=== PATIENT | male | born 1955 | race African-American/Black ===

== ENCOUNTER 2021-06-16 16:15 | Observation (INO) | payer MEDICARE, SELFPAY ==
--- NOTE | ~2021-06-16 | MR_ITS ---
EXAMINATION: MR brain/brain stem wo/w con EXAM DATE: 06/17/2021 11:09 INDICATION: Weakness left side. Acute infarction. TECHNIQUE: Magnetic resonance imaging (MRI) of the brain/brain stem obtained without contrast. Sagit jose T1, axial diffusion, gradient echo (T2*), T1, T2, FLAIR sequences obtained. Patient was then inj ected with 20 cc intravenous Multihance contrast. Axial and coronal postcontrast T1 weighted sequence s obtained. Correlation is made to head CT from yesterday. FINDINGS: Right thalamic hypodensity identified on yesterday's CT has restricted diffusion and increa sed T2 signal, acute to early subacute infarction (probably about 24 hours old). There is mild microa ngiopathy. Mildly dilated perivascular spaces at the vertex. No obstructive hydrocephalus, brain mass , acute intracranial hemorrhage or extra-axial collections. Flow voids are seen in the cerebral arter ies on the T2 weighted sequences consistent with their expected patency. Orbits and soft tissues unre markable. There are no areas of abnormal enhancement on the post contrast images. IMPRESSION: Right thalamic acute to early subacute lacunar infarction. Reviewed, dictated and finalized at location B.
--- NOTE | ~2021-06-16 | XR_ITS ---
EXAMINATION: XR chest 1V portable 06/16/2021 16:50 INDICATION: Dyspnea. Left leg weakness. PROCEDURE: AP portable chest COMPARISON: No prior studies for comparison. FINDINGS: The lungs are clear. The cardiomediastinal silhouette is within normal limits. There are no pleural effusions. There is no pneumothorax suspected. IMPRESSION: 1: NO ACUTE CARDIOPULMONARY DISEASE. Reviewed, dictated and finalized at location A.
--- NOTE | ~2021-06-16 | CT_ITS ---
EXAMINATION: CT brain wo con DATE: 06/16/2021 17:10 INDICATION: Weakness and unsteady gait TECHNIQUE: Computed tomography (CT) of the head was performed without intravenous contrast. Sagittal and coronal reconstructions were performed. The mA was adjusted according to patient size. Iterative reconstruction technique was employed. The dose-length product was 605.33 mGy-cm. COMPARISON: None FINDINGS: Old right occipital craniotomy. Right thalamic old lacunar infarct. No acute intracranial hemorrhage, acute infarction or abnormal extra axial fluid collection. There is mild scattered white matter hypo attenuation consistent with chronic small vessel ischemic disease. Ventricles are normal and symmetr ic. No mass/mass effect. The orbits, paranasal sinuses and mastoid air cells are normal. IMPRESSION: 1. No acute intracranial process. 2. Right thalamic old lacunar infarct with additional mild scattered nonspecific white matter hypoatt enuation consistent with chronic small vessel ischemic disease. Reviewed, dictated and finalized at location A. IMPRESSION: 1. No acute intracranial process. 2. Right thalamic old lacunar infarct with additional mild scattered nonspecifi c white matter hypoattenuation consistent with chronic small vessel ischemic di sease.
--- NOTE | ~2021-06-16 | US_ITS ---
EXAMINATION: US carotid duplex BI DATE: 06/17/2021 11:35 INDICATION: Left-sided weakness TECHNIQUE: Grayscale, color Doppler, and pulsed Doppler images of the cervical carotid arteries were obtained. The degree of vessel stenosis is placed in one of the following categories: normal, <50%, 5 0-69%, >=70% but less than near-occlusion, near-occlusion, or total occlusion. Note that percent sten osis relative to normal distal artery lumen diameter is indirectly measured from velocity measurement s as described by Gary, et al. Radiology 2003; 229:340-346. Notes: Normal: Peak systolic velocity <125 centimeters/sec and no plaque <50%. Peak systolic velocity <125 ( EDV <40; ICA/CCA PSV ratio <2.0; used these factors only a tandem lesions or low cardiac output or co ntralateral disease) 50-69 %: PSV 125-230 (EDV 40-100; ratio 2-4) >= 70% but less than near occlusion: PSV greater than 230 (EDV > 100; ratio> 4.0) Near Occlusion: PSV that is variable; markedly narrowed lumen Occlusion: Absent flow on color/spectral Doppler and no lumen on palm scale. COMPARISON: None. FINDINGS: RIGHT: The right common carotid artery (CCA) peak systolic velocity (PSV) is 52 cm/s. The right internal car otid artery (ICA) PSV is 60 cm/s. The right ICA end-diastolic velocity (EDV) is 11 cm/s. The right IC A/CCA PSV ratio is 1.2. The external carotid artery (ECA) PSV is 72 cm/s. There is antegrade flow in the right vertebral artery. LEFT: The left CCA PSV is 78 cm/s. The left ICA PSV is 59 cm/s. The left ICA EDV is 19 cm/s. The left ICA/C CA PSV ratio is 0.8. The ECA PSV is 85 cm/s. There is antegrade flow in the left vertebral artery. IMPRESSION: 1. Less than 50% stenosis in the right internal carotid artery by sonographic criteria. 2. Less than 50% stenosis in the left internal carotid artery by sonographic criteria. Reviewed, dictated and finalized at location A. IMPRESSION: 1. Less than 50% stenosis in the right internal carotid artery by sonographic c ayden. 2. Less than 50% stenosis in the left internal carotid artery by sonographic cesar chris.
[2021-06-16 16:18] VITALS: BP 146/94; PULSE 124; RESP 18; TEMP 36.8; O2SAT 99
--- NOTE | 2021-06-16 16:23 | ECG_ITS ---
Measurements Intervals [place] Rate: 118 P: 53 TN: 204 QRS: 210 QRSD: 96 T: 59 QT: 331 QTc: 464 Interpretive Statements SINUS TACHYCARDIA RIGHT AXIS DEVIATION BORDERLINE AV CONDUCTION DELAY POSSIBLE LEFT ATRIAL ENLARGEMENT POOR R WAVE PROGRESSION, ANTERIOR LEADS CONSIDER INFERIOR INFARCT, AGE INDETERMINATE ABNORMAL ECG Electronically Signed On 06-16-2021 16:37:25 CDT by Micah De La Cruz D.O.
[2021-06-16 16:38] LABS: Glucose Point of Care 245 mg/dl (65-105)
[2021-06-16 16:46] LABS: Basophils Percent Auto 0.4 % (0.2-1.2); Eosinophils Percent Auto 0.3 % (0-4.4); Hematocrit 48.9 % (42.0-52.0); Hemoglobin 16.4 g/dL (14.0-18.0); Immature Granulocyte Absolute 0.01 K/mm3 (0.00-0.031); Immature Granulocyte Percent A 0.1 % (0-0.5); Lymphocytes Absolute Auto 2.79 K/mm3 (0.9-3.2); Lymphocytes Percent Auto 35.9 % (18.3-44.2); Mean Corpuscular HGB Conc 33.5 g/dl (32-36); Mean Corpuscular Hemoglobin 31.1 pg (26-34); Mean Corpuscular Volume 92.8 fl (80-100); Monocytes Absolute Auto 0.7 K/mm3 (0.1-0.6); Monocytes Percent Auto 8.9 % (2.6-8.5); Neutrophils Absolute Auto 4.2 K/mm3 (1.3-6.7); Neutrophils Percent Auto 54.4 % (45.5-73.1); Platelet Count Result 283 k/mm3 (150-375); Red Blood Count 5.27 M/mm3 (4.6-6.20); White Blood Count 7.8 K/mm3 (4.5-10.0)
[2021-06-16 16:53] LABS: INR 0.9; Prothrombin Time 12.3 Seconds (11.1-14.7)
[2021-06-16 16:54] LABS: Partial Thromboplastin Time 25.8 SECONDS (22.3-36.8)
[2021-06-16 16:56] LABS: Anion Gap 18 mmol/L (8-16); Blood Urea Nitrogen 22 mg/dL (9-20); Calcium 9.8 mg/dL (8.4-10.2); Carbon Dioxide 17 mmol/L (22-30); Chloride 104 mmol/L (98-107); Estimated CRCL calculation 102 ml/min; Estimated Glomerular Filt Rate > 60; Glucose 242 mg/dL (65-110); Potassium 3.7 mmol/L (3.4-5.0); Sodium 139 mmol/L (137-145)
[2021-06-16 17:08] LABS: Troponin I < 0.012 ng/mL (0.000-0.034)
--- NOTE | 2021-06-16 17:13 | ED.NEUROSD ---
HPI - Neuro Symptoms/Deficit General Chief Complaint: Neuro Symptoms/Deficit Stated Complaint: LEFT HAND NUMBNESS Time Seen by Provider: 06/16/21 16:40 Source: patient Mode of arrival: ambulatory Limitations: no limitations History of Present Illness HPI Narrative: Patient is a 66-year-old male complaining of left hand numbness accompanied by left lower extremity weakness that started yesterday. Patient denies any headache, dizziness, speech or visual disturbance, unsteady gait, chest pain, shortness of breath, nausea, vomiting, fever or chills. Related Data Allergies Allergy/AdvReac Type Severity Reaction Status Date / Time No Known Allergies Allergy Unverified 03/28/17 06:55 Review of Systems Review of Systems: All systems reviewed & are unremarkable except as noted in HPI and below Constitutional: Constitutional: Denies body ache(s), Denies chills, Denies excessive sweating, Denies fatigue, Denies fever(s), Denies headache(s), Denies lethargy, Denies malaise, Denies weakness and Denies weight loss Eyes: Eyes: Denies blurry vision, Denies change in vision and Denies loss of vision ENT: Denies dizziness, Denies ear discharge, Denies headache(s), Denies lip swelling, Denies epistaxis, Denies nasal congestion, Denies neck pain, Denies throat swelling and Denies tongue swelling Cardiovascular: Cardiovascular: Denies chest pain, Denies chest pain at rest, Denies chest pain with activity, Denies diaphoresis, Denies rapid heart rate, Denies edema, Denies irregular heart rhythm, Denies lightheadedness, Denies palpitations, Denies dyspnea and Denies dyspnea on exertion Respiratory: Respiratory: Denies chest congestion, Denies cough, Denies hemoptysis, Denies dyspnea and Denies dyspnea on exertion Gastrointestinal: Gastrointestinal: Denies abdominal pain, Denies melena, Denies hematochezia, Denies diarrhea, Denies nausea, Denies vomiting and Denies hematemesis Musculoskeletal: Musculoskeletal: Denies abnormal gait, Denies deformity, Denies joint swelling, Denies limited range of motion and Denies neck pain Neurologic: Denies Abnormal speech present, Denies abnormal gait, Denies confusion, Denies dizziness, Denies headache(s), Denies loss of vision, Denies Other visual disturbances, Denies Sensory deficit (Neuro) and Denies weakness Psychiatric: Psychiatric: Denies confusion, Denies depression, Denies auditory hallucinations, Denies homicidal ideation and Denies suicidal ideation Endocrine: Endocrine: Denies cold intolerance, Denies excessive sweating, Denies fatigue, Denies heat intolerance and Denies palpitations Hematologic/Lymphatic: Hematologic/Lymphatic: Denies easy bleeding and Denies easy bruising Allergic/Immunologic: Allergic/Immunologic: Denies lip swelling, Denies throat swelling and Denies tongue swelling PMFSH Comments Past medical history: Diabetes Family history: Diabetes Social history: Non-smoker no EtOH or drug use Course Course Emergency Course: Patient reexamined at 1814. Patient still having left hand numbness. Left lower extremity weakness is resolved. Vital Signs Vital signs: Vital Signs Temperature 36.8 C 06/16/21 16:18 Pulse Rate 124 H 06/16/21 16:18 Respiratory Rate 18 06/16/21 16:18 Blood Pressure 146/94 H 06/16/21 16:18 Pulse Oximetry 99 06/16/21 16:18 Temperature 36.8 C 06/16/21 16:18 Pulse Rate 112 H 06/16/21 17:37 Respiratory Rate 18 06/16/21 17:37 Blood Pressure 148/91 H 06/16/21 17:37 Pulse Oximetry 98 06/16/21 17:37 MDM - Neuro Symptoms/Deficit MDM Narrative Medical decision making narrative: I reviewed his labs EKG and CT scan of his head. CBC within normal limits chemistry shows a elevated blood glucose of 242 otherwise within normal limits. CT head did not show any acute intracranial process, old infarcts seen. Patient is not a candidate for TPA since onset of symptoms is greater than 4.5 hours. Patient is also not a candidate for thrombectomy since onset
[2021-06-16 17:37] VITALS: BP 148/91; PULSE 112; RESP 18; O2SAT 98
[2021-06-16] MEDS: ASPIRIN 81 MG CHEWABLE TABLET 324 MG PO (18:36)
[2021-06-16 19:28] VITALS: BP 157/90; PULSE 108; RESP 19; O2SAT 97
--- NOTE | 2021-06-16 19:28 | PC.NURSE ---
Assumed care of pt at this time. Pt alert and upright on stretcher, no request at this time. Pt updated on POC.
[2021-06-16 20:53] VITALS: BP 163/96; PULSE 103; RESP 18; O2SAT 98
[2021-06-16 21:05] VITALS: BMI 38.7
[2021-06-16 21:10] VITALS: PULSE 96
[2021-06-16 21:15] VITALS: BP 150/93; PULSE 107; RESP 20; TEMP 36.9; O2SAT 96
[2021-06-16] MEDS: LACTATED RINGERS 1,000 ML 125 ML IV CONT (21:18)
--- NOTE | 2021-06-16 22:22 | PC.NURSE ---
This patient, Osmel Hinton, was admitted to [facility]. Patient/family oriented to hospital policies and general routines including ID bracelet, bed and alarms, visiting hours, pain management, procedures, bathroom and other care routines, personal items, smoking policy, room service/diet, and visiting hours. Information on how to activate the Rapid Response Team has been discussed. Patient/Family are encouraged to report perceived risks to care and to ask questions if they do not understand what they are told or what they should do.
[2021-06-16 22:35] LABS: Glucose Point of Care 219 mg/dl (65-105)
[2021-06-17] VITALS (11 sets, daily range): BP systolic 142–165; BP diastolic 77–104; PULSE 85–104; RESP 16–20; TEMP 36–36.8; O2SAT 96–98; BMI 38.7
--- NOTE | 2021-06-17 | ECHO_ITS ---
Patient Info Name: Osmel Hinton Age: 66 years : 1955 Gender: Male Ht: 67 in Wt: 246 lbs BSA: 2.35 m2 HR: 92 bpm BP: 155 / 95 mmHg Technical Quality: Good Exam Date: 06/17/2021 7:55 AM Exam Location: [facility] Patient Status: Outpatient Admit Date: 06/16/2021 Staff Ordering Physician: Gabriela Sosa NP Group Insurance Specialist: Savana Davis RDCS Attending Provider: Minerva Hair MD Referring Physician: Ian ALLEN; Exam Type: CA echo doppler w bubble study Study Info Indications - LEFT SIDED WWEAKNESS Complete two-dimensional, color flow and Doppler transthoracic echocardiogram is performed with agitated saline. Contrast/Agitated Saline Contrast/Ag. Saline: Agitated Saline Amount: 20.00 ml Administered By: Marita Dougherty RN Existing IV Access: Yes IV Access Condition: patent with no signs of infiltration Summary 1. Left ventricular chamber dimension is normal. 2. Left ventricular systolic function is normal, estimated at 60-65%. 3. There is moderate concentric increased left ventricular wall thickness. 4. The left ventricular diastolic function is grade I diastolic dysfunction. 5. E/e' 8 is minimally elevated. 6. Global longitudinal strain is abnormal at -13.3%. 7. Left atrial chamber dimension is mildly enlarged. 8. There is mild aortic valve sclerosis. 9. There is trace pulmonic regurgitation. 10. Atheroma noted in anterior aortic root. Left Ventricle E/e' 8 is minimally elevated. Global longitudinal strain is abnormal at -13.3%. Left ventricular chamber dimension is normal. Left ventricular systolic function is normal, estimated at 60-65%. There is moderate concentric increased left ventricular wall thickness. The left ventricular diastolic function is grade I diastolic dysfunction. Right Ventricle Right ventricular chamber dimension is normal. Right ventricular systolic function is normal. Left Atria Left atrial chamber dimension is mildly enlarged. Right Atria Right atrial chamber dimension is normal. Atrial Septum Agitated saline injection with and without valsalva maneuver opacified right cardiac chambers without shunt to left cardiac chambers. Intact interatrial septum visualized by 2D and agitated saline imaging. Aortic Valve The aortic valve is trileaflet. There is mild aortic valve sclerosis. There is no aortic valve stenosis. There is no aortic valve regurgitation. Pulmonic Valve There is trace pulmonic regurgitation. Mitral Valve There is no mitral valve stenosis. There is no mitral valve regurgitation. Tricuspid Valve There is no tricuspid valve regurgitation. Pericardium/Pleural There is no pericardial effusion. Inferior Vena Cava Normal inferior vena cava with >50% collapse upon inspiration consistent with normal right atrial pressure, 5 mmHg. Aorta Atheroma noted in anterior aortic root. The aortic root size at the sinus of Valsalva is normal. Tricuspid Valve Name Value Normal Estimated PAP/RSVP RA Pressure 5 mmHg <=5 Report Signatures
--- NOTE | 2021-06-17 | PM.IMHP ---
H&P: HPI History of Present Illness Date/Time: 06/16/21 [id number] this is a 66-year-old male patient who had been on medication for blood pressure and diabetes in the past. The patient denies having any previous strokes. The patient stated that Sunday morning he woke up and was having some numbness and tingling to his left arm. The patient also stated that his left leg felt weak as well. The patient stated if he leaned too far to left he would fall over. The patient stated that he has been controlling his diabetes with diet. The patient was found to have an anion gap 18. His blood sugar was 245 and then 219. The patient stated that his blood sugars are was in the 200s. Head CT was read as no acute intracranial process. Right they will make old lacunar infarct with additional mild scattered nonspecific white matter hypoattenuation consistent with chronic small vessel ischemic disease. Chest x-ray was read as no acute cardiopulmonary disease. The patient was started on an aspirin and IV fluids. The patient is being admitted for observation on the date of service of 06/16/2021. Chief Complaint: Numbness and tingling in the left arm and leg Review of Systems Review of Systems: All systems reviewed & are unremarkable except as noted in HPI and below Constitutional: Constitutional: Reports as per HPI and Reports no additional constitutional complaints Eyes: Eyes: Reports as per HPI and Reports no additional eye complaints ENT: Reports system reviewed and no additional complaints, except as documented and Reports Normal hearing present Cardiovascular: Cardiovascular: Reports no additional cardiovascular complaints Respiratory: Respiratory: Reports no additional respiratory complaints and Reports no additional respiratory complaints Gastrointestinal: Gastrointestinal: Reports as per HPI and Reports no additional gastrointestinal complaints Musculoskeletal: Musculoskeletal: Reports no additional musculoskeletal complaints Integumentary/Breasts: Skin/Breast: Reports system reviewed and no additional complaints, except as docu and Reports as per HPI Neurologic: Reports system reviewed and no additional complaints, except as documented, Reports as per HPI and Reports Normal hearing present Psychiatric: Psychiatric: Reports no additional psychiatric complaints and Reports as per HPI Endocrine: Endocrine: Reports no additional endocrine complaints Hematologic/Lymphatic: Hematologic/Lymphatic: Reports no additional hematologic/lymphatic complaints Allergic/Immunologic: Allergic/Immunologic: Reports no additional allergic/immunologic complaints [facility] Past Medical History Medical History (Updated 06/17/21 @ 00:11 by Gabriela Sosa NP) DM2 (diabetes mellitus, type 2) Patient stated that he is diet controlled and no longer takes any medication Hyperlipidemia Hypertension Nerve compression Decompression of cerebral nerve right-sided posterior Family History Family History (Updated 06/17/21 @ 00:12 by Gabriela Sosa NP) Father Cancer Mother Alzheimer disease Social History Social History (Updated 06/17/21 @ 00:13 by Gabriela Sosa NP) Social History: The patient lives with his and she is the durable power attorney law clerk for healthcare. The patient desires to be a full code. He has 3 children. 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 He is a lifelong nonsmoker does not drink alcohol or do any illicit drugs. Smoking status: Never smoker Alcohol intake: never Substance use: never Spiritual care concerns: No Meds Home Medications and Allergies Home Medications Medication Instructions Recorded Confirmed Type No Home Medications 06/16/21 06/16/21 History Allergies Allergy/AdvReac Type Severity Reaction Status Date / Time No Known Allergies Allergy Unverified 03/28/17 06:55 Vital Signs Vital Signs - 24 hr 06/16/21 16:18 06/16/21 17:37 06/16/21 19:28 Temp
[2021-06-17 05:53] LABS: Alanine Aminotransferase 14 U/L (4-50); Alkaline Phosphatase 93 U/L (38-126); Anion Gap 11 mmol/L (8-16); Aspartate Amino Transferase 19 U/L (17-59); Bilirubin,Total 0.7 mg/dL (0.2-1.3); Blood Urea Nitrogen 22 mg/dL (9-20); Calcium 9.3 mg/dL (8.4-10.2); Carbon Dioxide 21 mmol/L (22-30); Chloride 103 mmol/L (98-107); Cholesterol 261 mg/dL (0-200); Estimated CRCL calculation 107 ml/min; Estimated Glomerular Filt Rate > 60; Glucose 254 mg/dL (65-110); HDL Direct 33 mg/dL; Lactic Acid Reflex 0.9 mmol/L (0.7-2.1); Magnesium 1.8 mg/dL (1.6-2.3); Potassium 3.2 mmol/L (3.4-5.0); Sodium 135 mmol/L (137-145); Triglycerides 189 mg/dL (<150)
[2021-06-17 05:55] LABS: Hemoglobin A1C 11.5 % (<5.7)
[2021-06-17 06:06] LABS: LDL Cholesterol Direct 162 mg/dL
[2021-06-17 07:50] LABS: Glucose Point of Care 206 mg/dl (65-105)
[2021-06-17] MEDS: POTASSIUM CHLORIDE 20 MEQ TABLET 40 MEQ PO (09:01)
[2021-06-17] MEDS: ASPIRIN 325 MG ENTERIC TABLET PO (09:02)
[2021-06-17 09:21] LABS: Glucose Point of Care 224 mg/dl (65-105)
[2021-06-17] MEDS: INSULIN ASPART (*BKC) 100 UNITS/ML SUB-Q (09:21)
--- NOTE | 2021-06-17 09:48 | WPDNEURCNPN ---
Assessment and Plan Additional Plan In addition to the possibility of small vessel disease with subcortical strokes as has been documented by the initial CT scan the possibility of the compressive neuropathy is also likely the patient stays in 1 position particularly during sleep also with history of uncontrolled diabetes mellitus once the stroke evaluation is completed benefit from the outpatient EMG nerve conduction study at this stage will continue on the medication as such echocardiogram has been done after that decision will be made whether he needs different therapeutic regimen or not. Consult date: 06/17/21 Time Seen: 09:30 HPI: Osmel Hinton is a 66 year old male has been admitted to the hospital through the emergency room with information that he woke up in the morning on Sunday with the complaints of numbness and tingling sensation of his left upper extremity at the same time his left lower extremity felt weaker as well when he leaned over to the left he had a tendency to fall over patient is a known diabetic been controlling his blood sugar with diet though his blood sugar in the emergency room was 245 and then repeat [address] scan was abnormal but with no acute intracranial process and also with no bleed chest x-ray was negative he was started on intravenous fluids and aspirin and was admitted to the hospital for further evaluation. His past history as mentioned above is consistent with 1. Type 2 diabetes mellitus 2. Hypertension 3. Hyperlipidemia 3. Surgery on the right upper extremity . He is a never smoker never drink never substance user but has no medications as well. is studies up until now included CBC which is normal and BMP which revealed a blood sugar of 254, BUN of 22 and creatinine of 0.70 with hemoglobin A1c of 11.5, triglycerides 189 with cholesterol of 261, CT of the head documented right thalamic old lacunar infarct with scattered nonspecific white matter hypoattenuation consistent with the chronic small-vessel ischemic disease Review of Systems Review of Systems: All systems reviewed & are unremarkable except as noted in HPI and below PMFSH Past Medical History Medical History DM2 (diabetes mellitus, type 2) Patient stated that he is diet controlled and no longer takes any medication Hyperlipidemia Hypertension Nerve compression Decompression of cerebral nerve right-sided posterior Family History Family History Father Cancer Mother Alzheimer disease Social History Social History Social History: The patient lives with his and she is the durable power occupational safety and health manager for healthcare. The patient desires to be a full code. He has 3 children. 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 He is a lifelong nonsmoker does not drink alcohol or do any illicit drugs. Smoking status: Never smoker Alcohol intake: never Substance use: never Spiritual care concerns: No Meds Home Medications and Allergies Home Medications Medication Instructions Recorded Confirmed Type No Home Medications 06/16/21 06/16/21 History Allergies Allergy/AdvReac Type Severity Reaction Status Date / Time No Known Allergies Allergy Unverified 03/28/17 06:55 Vital Signs Vital Signs - 24 hr 06/16/21 16:18 06/16/21 17:37 06/16/21 19:28 Temperature 36.8 C Pulse Rate 124 H 112 H 108 H Respiratory Rate 18 18 19 Blood Pressure 146/94 H 148/91 H 157/90 H Pulse Oximetry 99 98 97 06/16/21 20:53 06/16/21 21:10 06/16/21 21:15 Temperature 36.9 C Pulse Rate 103 H 96 107 H Respiratory Rate 18 20 Blood Pressure 163/96 H 150/93 H Pulse Oximetry 98 96 06/17/21 00:00 06/17/21 04:00 06/17/21 05:59 Temperature 36.6 C Pulse Rate 97 85 97 Respiratory Rate 16 Blood Pressure 155/95 H Pulse Oximetry 98 06/17/21
--- NOTE | 2021-06-17 10:27 | PC.NURSE ---
Pt to MRI per wheelchair.
[2021-06-17 11:54] LABS: Glucose Point of Care 182 mg/dl (65-105)
--- NOTE | 2021-06-17 12:23 | PM.IMPN ---
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 ECHO-->EF 60-65%, grade I diastolic dysfunction Carotid dopplers--> showed <50 % stenosis bilaterally Neurology consulted, recommendations appreciated Lipid panel reviewed Will start statin (2) DM2 (diabetes mellitus, type 2): Code(s): E11.9 - Type 2 diabetes mellitus without complications Status: Chronic Assessment and Plan: Uncontrolled Reported that he is diet controlled, on oral meds in the past BG 180s-240s A1c 11.5 Consult placed to DM educator SSI, accuchecks Monitor (3) Hyperlipidemia: Code(s): E78.5 - Hyperlipidemia, unspecified Status: Chronic Assessment and Plan: The patient had been on medication in the past and is longer taking any medication Lipid panel-->chol 261; trig 189 Statin initiated (4) Hypertension: Code(s): I10 - Essential (primary) hypertension Status: Chronic Assessment and Plan: The patient previously had been on blood pressure medication and is no longer taking it Continue p.r.n. hydralazine, Was on lisinopril and hydrochlorothiazide in the past Initiated ACEI, will consider adding BB if blood pressure allows Subjective Date/time seen: 06/17/21 12:23 Interval history: pt seen and evaluate; no acute events overnight; plan for MRI and carotids Review of Systems Review of Systems: All systems reviewed & are unremarkable except as noted in HPI and below Exam Const: General: no acute distress, alert and awake Orientation/consciousness: patient oriented x3 HENMT: Head: normocephalic and atraumatic Ears: hearing grossly normal bilaterally Face and sinus: face symmetric Mouth: Yes Normal oral and palatal mucosa present Eyes: EOM: EOMs intact bilaterally Neck: Neck: full ROM, trachea midline and no JVD Thyroid: thyroid normal Chest: Chest palpation & inspection: normal inspection of the chest Resp: Effort & Inspection: normal respiratory effort Auscultation: clear to auscultation bilaterally Cardio: Jugular venous distension: no JVD Rate: regular rate Rhythm: regular rhythm Heart sounds: S1 normal heart sound present and S2 normal heart sound present GI: Inspection: obesity GI Palp: Yes Soft to palpation Percussion: Yes normal to percussion Auscultation: normal bowel sounds : General: Yes no CVA tenderness Skin: General skin exam: normal color Rashes: no rashes Neuro: General: patient oriented x3 and CN's II-XI intact bilaterally Cranial nerves: Yes Equal, round and reactive pupils present Speech: normal speech Psych: Appearance: grossly normal Affect: normal affect Judgement: Good judgement present (Psych) Objective Data Vital Signs Vital Signs: Vital Signs - 24 hr 06/16/21 16:18 06/16/21 17:37 06/16/21 19:28 Temperature 36.8 C Pulse Rate 124 H 112 H 108 H Respiratory Rate 18 18 19 Blood Pressure 146/94 H 148/91 H 157/90 H Pulse Oximetry 99 98 97 06/16/21 20:53 06/16/21 21:10 06/16/21 21:15 Temperature 36.9 C Pulse Rate 103 H 96 107 H Respiratory Rate 18 20 Blood Pressure 163/96 H 150/93 H Pulse Oximetry 98 96 06/17/21 00:00 06/17/21 04:00 06/17/21 05:59 Temperature 36.6 C Pulse Rate 97 85 97 Respiratory Rate 16 Blood Pressure 155/95 H Pulse Oximetry 98 06/17/21 08:00 06/17/21 08:02 06/17/21 09:04 Temperature 36.0 C L Pulse Rate 91 94 Respiratory Rate 17 Blood Pressure 165/104 H 142/77 H Pulse Oximetry 97 06/17/21 12:00 Temperature Pulse Rate 104 H Respiratory Rate Blood Press
[2021-06-17] MEDS: ATORVASTATIN 10 MG TABLET PO (13:27)
[2021-06-17] MEDS: lisinopriL 5 MG TABLET PO (13:27)
[2021-06-17 16:40] LABS: Glucose Point of Care 195 mg/dl (65-105)
[2021-06-17 20:53] LABS: Glucose Point of Care 264 mg/dl (65-105)
[2021-06-18] VITALS: PULSE 80
[2021-06-18 04:00] VITALS: PULSE 86
[2021-06-18 05:54] VITALS: BP 136/82; PULSE 87; RESP 15; TEMP 36.7; O2SAT 94
[2021-06-18 06:16] LABS: Hematocrit 42.9 % (42.0-52.0); Hemoglobin 14.9 g/dL (14.0-18.0); Mean Corpuscular HGB Conc 34.7 g/dl (32-36); Mean Corpuscular Hemoglobin 30.7 pg (26-34); Mean Corpuscular Volume 88.3 fl (80-100); Mean Platelet Volume 11.6 fl (7.4-10.4); Platelet Count Result 265 k/mm3 (150-375); Red Blood Count 4.86 M/mm3 (4.6-6.20); Red Cell Distribution Width 12.5 % (11.5-14.5); White Blood Count 5.8 K/mm3 (4.5-10.0)
[2021-06-18 06:29] LABS: Anion Gap 8 mmol/L (8-16); Blood Urea Nitrogen 18 mg/dL (9-20); Calcium 9.6 mg/dL (8.4-10.2); Carbon Dioxide 25 mmol/L (22-30); Chloride 101 mmol/L (98-107); Estimated CRCL calculation 107 ml/min; Estimated Glomerular Filt Rate > 60; Glucose 225 mg/dL (65-110); Potassium 3.9 mmol/L (3.4-5.0); Sodium 134 mmol/L (137-145)
[2021-06-18 08:00] VITALS: PULSE 85; PULSE 93; RESP 13; O2SAT 97
[2021-06-18 08:12] LABS: Glucose Point of Care 215 mg/dl (65-105)
[2021-06-18] MEDS: ATORVASTATIN 10 MG TABLET PO (08:15)
[2021-06-18] MEDS: ASPIRIN 81 MG ENTERIC TABLET PO (08:15)
[2021-06-18] MEDS: lisinopriL 5 MG TABLET PO (08:15)
[2021-06-18 08:22] VITALS: BP 130/73; PULSE 93; RESP 13; TEMP 36.1; O2SAT 97
[2021-06-18] MEDS: INSULIN ASPART (*BKC) 100 UNITS/ML SUB-Q ×2 (08:24→11:59)
[2021-06-18] MEDS: CLOPIDOGREL BISULFATE 75 MG TABLET PO (09:16)
--- NOTE | 2021-06-18 11:02 | PM.DS ---
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 ECHO-->EF 60-65%, grade I diastolic dysfunction Carotid dopplers--> showed <50 % stenosis bilaterally Neurology consulted, recommendations appreciated Lipid panel reviewed Will start statin (2) DM2 (diabetes mellitus, type 2): Code(s): E11.9 - Type 2 diabetes mellitus without complications Status: Chronic Assessment and Plan: Uncontrolled Reported that he is diet controlled, on oral meds in the past BG 180s-240s A1c 11.5 Consult placed to DM educator SSI, accuchecks Monitor (3) Hyperlipidemia: Code(s): E78.5 - Hyperlipidemia, unspecified Status: Chronic Assessment and Plan: The patient had been on medication in the past and is longer taking any medication Lipid panel-->chol 261; trig 189 Statin initiated (4) Hypertension: Code(s): I10 - Essential (primary) hypertension Status: Chronic Assessment and Plan: The patient previously had been on blood pressure medication and is no longer taking it Continue p.r.n. hydralazine, Was on lisinopril and hydrochlorothiazide in the past Initiated ACEI, will consider adding BB if blood pressure allows DS: Summary Hospital Course Hospital Course: Mr. Hinton is a 66-year-old male patient with a past medical history for HTN and DM type II who presented to the ED with complaints of numbness and tingling to his left arm and LLE weakness. He denied any history of stroke. The patient stated if he leaned too far to left he would fall over. He had not been taking any medications for DM or HTN for the past few years. In the ED he was found to have an anion gap 18; blood sugar was 245 and then 219. He reported tat his blood sugars are were in the 200s and that he was diet controlled. Head CT was read as no acute intracranial process; right thalamic old lacunar infarct with additional mild scattered nonspecific white matter hypoattenuation consistent with chronic small vessel ischemic disease. Chest x-ray was read as no acute cardiopulmonary disease. The patient was started on an aspirin and IV fluids. The patient was admitted for observation on the date of service of 06/16/2021. Neurologly was consulted, ASA, Plavix and statin were initiated. MRI of the brain showed a right thalamic acute to early subacute lacunar infarction. He had an Echocardiogram which showed an EF 60-65%, grade I diastolic dysfunction. Lisinopril was initiated. Carotid dopplers showed <50% stenosis. His DM type II is uncontrolled and outreach educator was consulted. Oral medication regimen was initiated. The patient has been advised to reestablish care with his previous PCP, or advised to find a new one. He verbalized an understanding of the importance of follow up and medication adherence. Time Spent with Patient Time attestation: Total time spent providing and/or coordinating discharge services: Time spent: Greater than 30 minutes Exam Const: General: no acute distress, alert and awake Orientation/consciousness: patient oriented x3 HENMT: Head: normocephalic and atraumatic Ears: hearing grossly normal bilaterally Face and sinus: face symmetric Mouth: Yes Normal oral and palatal mucosa present Eyes: Pupils: Equal, round and reactive pupils present EOM: EOMs intact bilaterally Neck: Neck: full ROM, trachea midline and no JVD Thyroid: thyroid normal Chest: Chest palpation & inspection: normal
[2021-06-18 11:38] LABS: Glucose Point of Care 271 mg/dl (65-105)
[2021-06-18 12:00] VITALS: PULSE 111
--- NOTE | 2021-06-18 12:54 | PC.NURSE ---
Spoke with pt's son about discharge plans and the need for follow up care. PT/OT here to evaluate.
== END 2021-06-18 14:30 | disposition home or self-care (01) ==
LOC: ANHED 18:30 → ANHCPC 06-17 09:25
PROVIDERS: Emergency Medicine; Nurse Practitioner; Nurse Practitioner Adult Health; Admitting Provider Hospitalist; Emergency Provider Emergency Medicine; PCP Internal Medicine; Visit Provider Internal Medicine
DX: G45.9 Transient cerebral ischemic attack, unspecified (principal); G81.94 Hemiplegia, unspecified affecting left nondominant side; I10 Essential (primary) hypertension; E11.65 Type 2 diabetes mellitus with hyperglycemia; E78.5 Hyperlipidemia, unspecified; Z86.73 Personal history of transient ischemic attack (TIA), and cerebral infarction without residual deficits
CPT/HCPCS: 36415; 70450; 70553; 71045; 80048; 80053; 80061; 82948; 83036; 83605; 83735; 84443; 84484; 85025; 85027; 85610; 85730; 93005; 93306; 93880; 96375; 97110; 97161; 97165; 97535; 99285; A9270; A9577; C8929; G0378; J1815; J7120

== ENCOUNTER 2022-04-19 19:54 | Inpatient (IN) | payer MEDICARE, SELFPAY ==
[2022-04-19] VITALS (9 sets, daily range): BP systolic 113–172; BP diastolic 64–96; PULSE 78–98; RESP 14–20; TEMP 36.4–36.7; O2SAT 98–100; BMI 34.6
--- NOTE | ~2022-04-19 | MR_ITS ---
EXAMINATION: MR brain/brain stem wo/w con DATE: 04/20/2022 12:55 INDICATION: Left-sided hemiparesis TECHNIQUE: Magnetic resonance imaging (MRI) of the brain and brainstem was performed without intraven ous contrast. Sequences included sagittal and axial T1-weighted SE, axial diffusion-weighted FS SE, a xial 3D SWAN, axial T2-weighted FLAIR, and axial T2-weighted FSE. Postcontrast axial and coronal T1-w eighted SE was obtained. Apparent diffusion coefficient (ADC) maps were created. COMPARISON: None. FINDINGS: 3.0 x 3.0 x 1.8 cm region of restricted diffusion along the pericallosal medial anterior right fronta l lobe consistent with acute infarct. There are a few additional significant smaller foci of restrict ed diffusion along the cortex of the more cephalad aspect of the anterior right frontal lobe consiste nt with a shower of smaller emboli. Small old lacunar infarct in the left frontal lobe espinoza radiata . No intracranial hemorrhage or abnormal intracranial mass lesion. There are scattered areas of nonsp ecific increased T2-weighted signal intensity in the cerebral white matter, predominantly involving t he deep and periventricular white matter. There are no intraparenchymal signal abnormalities seen on the other pulse sequences. The ventricles are symmetric and normal in size. There are no abnormal ext ra-axial fluid collections. Flow voids are seen in the cerebral arteries on the T2-weighted sequences consistent with their expected patency. Mild mucoperiosteal thickening the bilateral ethmoid sinuses . Small right mastoid effusion. Visualized orbits and soft tissues are unremarkable. There are no are as of abnormal enhancement on the post contrast images. IMPRESSION: 1. Acute infarct in the medial anterior right frontal lobe. Reviewed, dictated and finalized at location A.
--- NOTE | ~2022-04-19 | US_ITS ---
EXAMINATION: US carotid duplex BI DATE: 04/20/2022 13:55 INDICATION: Unilateral weakness with cerebral atherosclerosis TECHNIQUE: Grayscale, color Doppler, and pulsed Doppler images of the cervical carotid arteries were obtained. The degree of vessel stenosis is placed in one of the following categories: normal, <50%, 5 0-69%, >=70% but less than near-occlusion, near-occlusion, or total occlusion. Note that percent sten osis relative to normal distal artery lumen diameter is indirectly measured from velocity measurement s as described by Gary, et al. Radiology 2003; 229:340-346. Notes: Normal: Peak systolic velocity <125 centimeters/sec and no plaque <50%. Peak systolic velocity <125 ( EDV <40; ICA/CCA PSV ratio <2.0; used these factors only a tandem lesions or low cardiac output or co ntralateral disease) 50-69 %: PSV 125-230 (EDV 40-100; ratio 2-4) >= 70% but less than near occlusion: PSV greater than 230 (EDV > 100; ratio> 4.0) Near Occlusion: PSV that is variable; markedly narrowed lumen Occlusion: Absent flow on color/spectral Doppler and no lumen on palm scale. COMPARISON: None. FINDINGS: RIGHT: The right common carotid artery (CCA) peak systolic velocity (PSV) is 70 cm/s. The right internal ca rotid artery (ICA) PSV is 85 cm/s. The right ICA end-diastolic velocity (EDV) is 19 cm/s. The right I CA/CCA PSV ratio is 0.8. The external carotid artery (ECA) PSV is 51 cm/s. There is antegrade flow in the right vertebral artery. LEFT: The left CCA PSV is 62 cm/s. The left ICA PSV is 53 cm/s. The left ICA EDV is 17 cm/s. The left ICA/C CA PSV ratio is 0.9. The ECA PSV is 37 cm/s. There is antegrade flow in the left vertebral artery. IMPRESSION: 1. Less than 50% stenosis in the right internal carotid artery by sonographic criteria. 2. Less than 50% stenosis in the left internal carotid artery by sonographic criteria. Reviewed, dictated and finalized at location A. IMPRESSION: 1. Less than 50% stenosis in the right internal carotid artery by sonographic c ayden. 2. Less than 50% stenosis in the left internal carotid artery by sonographic cesar chris.
--- NOTE | ~2022-04-19 | CT_ITS ---
Patient Name: Patient Name MR#: Patient MRN Accession#: Accession Numbers EXAMINATION: CTA brain carotid DATE: 04/19/2022 20:17 INDICATION: SUSPECTED CVA TECHNIQUE: Computed tomographic angiography (CTA) of the head was performed without and with 100 mL O mnipaque-350 intravenous contrast. CTA of the neck was performed with intravenous contrast. The dose- length product was 1690.31 mGy-cm. Maximum intensity projection and volume rendered 3D-reconstruction s were created by the technologist on a separate workstation. COMPARISON: CT brain 06/16/2021 FINDINGS: CTA NECK: Aortic arch and proximal great vessels: Unremarkable. Right common carotid, carotid bifurcation, and internal carotid artery: No significant plaque.There i s 0% stenosis of the proximal right internal carotid artery relative to normal distal artery lumen di ameter (NASCET criteria). Left common carotid, carotid bifurcation, and internal carotid artery: No significant plaque.There is 0% stenosis of the proximal left internal carotid artery relative to normal distal artery lumen diam eter (NASCET criteria). Vertebral arteries: No significant plaque or stenosis. Left vertebral artery is dominant. Hypoplastic right vertebral artery with minimal opacification. Other findings: None. CTA HEAD: No large vessel occlusion, aneurysm, high flow vascular malformation, nidus or extravasation. Nonsign ificant calcified and noncalcified plaque in the cavernous portion of the carotid, without severe abelino nosis. Severe focal stenosis of the small caliber right anterior cerebral artery, above the level of the corpus callosum. Multifocal nonsignificant calcified and noncalcified plaques within the cerebral arteries. 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 CT BRAIN: Loss of palm-white differentiation in the medial right frontal lobe. No hemorrhage, mass, or hydrocep halus. Old right thalamic infarct. Mild atrophy and chronic white matter change. Old right occipital craniotomy defect. Possible small arachnoid cyst along the anterior falx. IMPRESSION: 1. Acute infarct involving the medial right frontal lobe. 2. Focal severe stenosis in the distal right anterior cerebral artery (A4 segment). 3. No large vessel occlusion. Reviewed, dictated and finalized at location K. IMPRESSION: 1. Acute infarct involving the medial right frontal lobe. 2. Focal severe stenosis in the distal right anterior cerebral artery (A4 segme nt). 3. No large vessel occlusion.
--- NOTE | ~2022-04-19 | US_ITS ---
EXAMINATION: US venous doppler [facility] DATE: 04/20/2022 13:56 INDICATION: Lower limb swelling TECHNIQUE: Grayscale ultrasound images without and with compression and Doppler ultrasound images of the bilateral lower extremity veins were obtained. COMPARISON: None. FINDINGS: The visualized portions of right common femoral vein, profunda (deep) femoral vein, femoral vein, pop liteal vein, posterior tibial veins, peroneal veins, gastrocnemius vein and greater saphenous vein ou tflow are patent. The visualized portions of left common femoral vein, profunda femoral vein, femoral vein, popliteal v ein, posterior tibial veins, peroneal veins, gastrocnemius vein and greater saphenous vein outflow ar e patent. IMPRESSION: 1. No deep venous thrombosis in either lower limb. Reviewed, dictated and finalized at location A.
--- NOTE | 2022-04-19 20:00 | ECG_ITS ---
Measurements Intervals [place] Rate: 91 P: 60 DE: 255 QRS: -47 QRSD: 84 T: 89 QT: 369 QTc: 454 Interpretive Statements SINUS RHYTHM WITH FIRST DEGREE AV BLOCK LOW QRS VOLTAGE IN LIMB LEADS POOR R WAVE PROGRESSION, ANTERIOR LEADS BORDERLINE ST-T WAVE ABNORMALITY- HIGH LATERAL LEADS BASELINE ARTIFACT- I, II, III, AVR, AVL, AVF, V1-V2 ABNORMAL ECG Electronically Signed On 04-20-2022 10:52:17 CDT by Micah De La Cruz D.O.
[2022-04-19 20:19] LABS: Glucose Point of Care 174 mg/dl (65-105)
--- NOTE | 2022-04-19 20:29 | ED.NEUROSD ---
HPI - Neuro Symptoms/Deficit General Chief Complaint: Suspected CVA Stated Complaint: CVA Time Seen by Provider: 04/19/22 20:00 History of Present Illness HPI Narrative: 67-year-old prior CVA and diabetes presents here after he noticed he was unable to move his left side yesterday, he tells me that he had gone to an urgent care yesterday but they had not done anything and he had gone home afterwards. His son tells me that he had talked to him yesterday and he had seemed normal then, but when he called him at 11 AM this morning he had sounded strange on the phone. Per EMS, he had been found acting strange by bystanders at the [facility] [place] [facility]. Related Data Home Medications Medication Instructions Recorded Confirmed No Home Medications 04/19/22 04/19/22 Allergies Allergy/AdvReac Type Severity Reaction Status Date / Time No Known Allergies Allergy Unverified 03/28/17 06:55 Review of Systems Review of Systems: CONST: No fever. HEENT: No sore throat C/V: No chest pain RESP: No cough GI: No nausea or vomiting : No dysuria. M/S: Inability to move left side SKIN: No rash. NEURO: Weakness on the left side PSYCH: [No depression] [facility] Past Medical History Medical History DM2 (diabetes mellitus, type 2) Patient stated that he is diet controlled and no longer takes any medication Hyperlipidemia Hypertension Nerve compression Decompression of cerebral nerve right-sided posterior Family History Family History Father Cancer Mother Alzheimer disease Social History Social History Social History: The patient lives with his and she is the durable power business attorney for healthcare. The patient desires to be a full code. He has 3 children. 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 He is a lifelong nonsmoker does not drink alcohol or do any illicit drugs. Smoking status: Never smoker Alcohol intake: never Substance use: never Substance use type: does not use Spiritual care concerns: No Exam Narrative: EXAMINATION OF ORGAN SYSTEMS/BODY AREAS: Constitutional: Vital signs per nursing GENERAL:[No acute distress, non-toxic appearing.] HEAD: Normal with no signs of head trauma. EYES: EOMI, conjunctiva normal ENT: Hearing grossly intact LUNGS: Nonlabored breathing. HEART: [Regular rate and rhythm] ABD: [Soft], nondistended EXT: 4 range of motion and strength right side, minimal movement left side but not against gravity SKIN: [No rashes or lesions.] NEURO: [Alert and oriented x 3. Left-sided weakness.] PSYCH: Normal affect Course Vital Signs Vital signs: Vital Signs Temperature 98.0 F 04/19/22 20:16 Pulse Rate 95 04/19/22 20:16 Respiratory Rate 20 04/19/22 20:16 Blood Pressure 138/64 04/19/22 20:16 Pulse Oximetry 100 04/19/22 20:16 Oxygen Delivery Room Air 04/19/22 20:16 Temperature 97.6 F 04/19/22 22:30 Pulse Rate 92 04/20/22 00:00 Respiratory Rate 20 04/19/22 22:30 Blood Pressure 140/79 04/19/22 22:30 Pulse Oximetry 100 04/19/22 22:30 Oxygen Delivery Room Air 04/19/22 20:16 MDM - Neuro Symptoms/Deficit MDM Narrative Medical decision making narrative: 67-year-old male presenting with left-sided weakness, last known well and symptom onset 24 hours ago, vital signs normal, NIHSS 5 with left-sided weakness, I have high concern for a CVA, however he is out of the timeline for any intervention. D/w radiologist Dr. Mulligan acute right DAMARIS infarct, however no large vessel occlusion Patient states that he is no longer with his , he asked me to call his son instead I have discussed my concern with him as well as need for admission, patient started on aspirin and Plavix after discussion with neurology Dr. Mora, case discussed with hospitalist for admission. Lab Data Result asmita
[2022-04-19 20:33] LABS: Basophils Percent Auto 0.1 % (0.2-1.2); Eosinophils Percent Auto 0.2 % (0-4.4); Hematocrit 41.1 % (42.0-52.0); Hemoglobin 13.2 g/dL (14.0-18.0); Immature Granulocyte Absolute 0.02 K/mm3 (0.00-0.031); Immature Granulocyte Percent A 0.2 % (0-0.5); Lymphocytes Absolute Auto 1.58 K/mm3 (0.9-3.2); Lymphocytes Percent Auto 17.9 % (18.3-44.2); Mean Corpuscular HGB Conc 32.1 g/dl (32-36); Mean Corpuscular Hemoglobin 29.3 pg (26-34); Mean Corpuscular Volume 91.3 fl (80-100); Mean Platelet Volume 10.7 fl (7.4-10.4); Monocytes Absolute Auto 0.7 K/mm3 (0.1-0.6); Monocytes Percent Auto 8.1 % (2.6-8.5); Neutrophils Absolute Auto 6.5 K/mm3 (1.3-6.7); Neutrophils Percent Auto 73.5 % (45.5-73.1); Platelet Count Result 295 k/mm3 (150-375); Red Cell Distribution Width 13.3 % (11.5-14.5); White Blood Count 8.8 K/mm3 (4.5-10.0)
[2022-04-19 20:41] LABS: Ethanol < 10 mg/dL (<10)
[2022-04-19 20:42] LABS: Alanine Aminotransferase 16 U/L (6-50); Albumin Level 3.7 g/dL (3.5-5.1); Alkaline Phosphatase 74 U/L (38-126); Anion Gap 11 mmol/L (8-16); Aspartate Amino Transferase 22 U/L (17-59); Bilirubin,Total 0.5 mg/dL (0.2-1.3); Blood Urea Nitrogen 17 mg/dL (9-20); Calcium 8.7 mg/dL (8.4-10.2); Carbon Dioxide 24 mmol/L (22-30); Chloride 102 mmol/L (98-107); Estimated CRCL calculation 100 ml/min; Estimated Glomerular Filt Rate > 60; Glucose 173 mg/dL (65-110); Potassium 3.4 mmol/L (3.4-5.0); Sodium 137 mmol/L (137-145)
[2022-04-19 20:46] LABS: INR 1.2; Prothrombin Time 15.1 Seconds (11.1-14.7)
[2022-04-19 20:47] LABS: Partial Thromboplastin Time 31.8 SECONDS (22.3-36.8)
[2022-04-19 20:54] LABS: Troponin I < 0.012 ng/mL (0.000-0.034)
--- NOTE | 2022-04-19 21:00 | PM.IMHP ---
H&P: HPI History of Present Illness Date/Time: 04/19/22 21:00 Chief Complaint: left-sided weakness Narrative: This is a 67-year-old male with past medical history significant for stroke, hypertension, diabetes, grade 1 diastolic dysfunction. patient presents to the emergency due to left-sided weakness and altered mental status. Had been to the urgent care the day before for left-sided weakness and after a while went home today had problems getting dressed up it took him 2 hours in the morning, denies any falls, any loss of consciousness, any loss of vision, or changes in his vision, no headaches, no difficulty swallowing, no problems with his speech. Preliminary workup was significant for CTA of head and neck for acute infarct involving the medial right frontal lobe,focal severe stenosis in the distal right anterior cerebral artery, no large vessel occlusion. at the time of my visit patient had significant weakness of the left upper extremity and left lower extremity he denied any fevers, cough, sputum production, nausea, vomiting, abdominal pain, no chest pain, no PND or orthopnea. Patient is been admitted for further evaluation management and treatment. Review of Systems Review of Systems: Left-sided weakness, difficulty in getting dressed in the morning to came to hours. Constitutional: Constitutional: Denies chills, Denies fatigue, Denies fever(s), Denies night sweats and Denies poor appetite Eyes: Eyes: Denies change in vision ENT: Denies dysphagia, Denies vertigo, Denies dizziness and Denies odynophagia Cardiovascular: Cardiovascular: Denies chest pain, Denies syncope, Denies pedal edema, Denies edema, Denies irregular heart rhythm, Denies leg edema, Denies lightheadedness, Denies radiating jaw, neck or arm pain, Denies palpitations, Denies dyspnea on exertion and Denies paroxysmal nocturnal dyspnea Respiratory: Respiratory: Denies chest congestion, Denies cough and Denies excessive phlegm production Gastrointestinal: Gastrointestinal: Denies abdominal pain, Denies dyspepsia, Denies heartburn, Denies diarrhea, Denies nausea and Denies vomiting Genitourinary: Genitourinary: Denies dysuria Musculoskeletal: Musculoskeletal: Reports muscle weakness ( Left upper and lower extremities) Integumentary/Breasts: Skin/Breast: Denies rash Neurologic: Denies vertigo, Denies dizziness and Reports focal weakness ( left hemibody) Psychiatric: Psychiatric: Reports no additional psychiatric complaints and Reports as per HPI Endocrine: Endocrine: Denies cold intolerance, Denies fatigue, Denies flushing, Denies heat intolerance, Denies polyphagia, Denies polydipsia and Denies palpitations Hematologic/Lymphatic: Hematologic/Lymphatic: Reports no additional hematologic/lymphatic complaints and Reports as per HPI Allergic/Immunologic: Allergic/Immunologic: Reports no additional allergic/immunologic complaints and Reports as per HPI PMFSH Past Medical History Medical History DM2 (diabetes mellitus, type 2) Patient stated that he is diet controlled and no longer takes any medication Hyperlipidemia Hypertension Nerve compression Decompression of cerebral nerve right-sided posterior Family History Family History Father Cancer Mother Alzheimer disease Social History Social History Social History: The patient lives with his and she is the durable power corporate associate attorney for healthcare. The patient desires to be a full code. He has 3 children. 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 He is a lifelong nonsmoker does not drink alcohol or do any illicit drugs. Smoking status: Never smoker Alcohol intake: never Substance use: never Substance use type: does not use Spiritual care concerns: No Meds Home Medications and Allergies Home Medications Medi
[2022-04-19] MEDS: CLOPIDOGREL BISULFATE 300 MG TABLET PO (21:04)
[2022-04-19] MEDS: ASPIRIN 81 MG CHEWABLE TABLET 324 MG PO (21:04)
[2022-04-19 21:52] LABS: SARS-CoV-2 RNA PCR Negative
--- NOTE | 2022-04-19 22:11 | ADMGEN ---
This patient, Osmel Hinton, was admitted to Medical Room 244-. Patient/family oriented to hospital policies and general routines including ID bracelet, bed and alarms, visiting hours, pain management, procedures, bathroom and other care routines, personal items, smoking policy, room service/diet, and visiting hours. Information on how to activate the Rapid Response Team has been discussed. Patient/Family are encouraged to report perceived risks to care and to ask questions if they do not understand what they are told or what they should do.
[2022-04-20] VITALS (9 sets, daily range): BP systolic 147–160; BP diastolic 81–89; PULSE 74–92; RESP 16–18; TEMP 36.1–36.6; O2SAT 97–100; BMI 34.6
--- NOTE | 2022-04-20 | ECHO_ITS ---
Patient Info Name: Osmel Hinton Age: 67 years : 1955 Gender: Male Ht: 72 in Wt: 243 lbs BSA: 2.40 m2 HR: 74 bpm BP: 147 / 83 mmHg Exam Date: 04/20/2022 8:53 AM Exam Location: [facility] Patient Status: Inpatient Admit Date: 04/19/2022 Staff Ordering Physician: Rafita Ortega MD Call Center Recruiter: Satnam Dorsey, GUERO, RT Attending Provider: Rafita Ortega MD Referring Physician: Jordan LE; Exam Type: CA echo doppler color flow Study Info Indications I63.119 - Cerebral infarction due to embolism of unspecified vertebral artery Complete two-dimensional, color flow and Doppler transthoracic echocardiogram is performed. Strain analysis performed. Summary 1. Complete two-dimensional, color flow and Doppler transthoracic echocardiogram is performed. 2. Left ventricular systolic function is normal, estimated at 60-65%. 3. There is moderately increased left ventricular wall thickness. 4. The left ventricular diastolic function is grade I diastolic dysfunction. 5. Left atrial chamber dimension is mildly enlarged. 6. The aortic valve is trileaflet. There is a small mass on the left coronary cusp of the aortic valve measuring 0.5 x 0.9 cm. It was present also on the echo done June 16, 2021 and at that time measured 0.5 x 0.7 cm. Most likely it represents calcification although papillary fibroelastoma should be considered in the differential diagnosis. Less likely vegetation. 7. No pulmonary hypertension, estimated pulmonary arterial systolic pressure is 29 mmHg. 8. There is trace tricuspid valve regurgitation. Left Ventricle Left ventricular chamber dimension is normal. Left ventricular systolic function is normal, estimated at 60-65%. There is moderately increased left ventricular wall thickness. Left ventricular septal wall motion is normal. The left ventricular diastolic function is grade I diastolic dysfunction. Global longitudinal strain is abnormal at -16 %. Right Ventricle Right ventricular chamber dimension is normal. Right ventricular systolic function is normal. Left Atria Left atrial chamber dimension is mildly enlarged. Right Atria Right atrial chamber dimension is normal. Atrial Septum Intact interatrial septum visualized by color flow imaging. Aortic Valve The aortic valve is trileaflet. There is a small mass on the left coronary cusp of the aortic valve measuring 0.5 x 0.9 cm. It was present also on the echo done June 16, 2021 and at that time measured 0.5 x 0.7 cm. Most likely it represents calcification although papillary fibroelastoma should be considered in the differential diagnosis. Less likely vegetation. There is no aortic valve stenosis. There is no aortic valve regurgitation. There is mild aortic valve calcification. Pulmonic Valve The pulmonic valve is normal. There is no pulmonic valve stenosis. There is no pulmonic regurgitation. Mitral Valve The mitral valve has normal leaflets. There is no mitral valve stenosis. There is no mitral valve regurgitation. Tricuspid Valve The tricuspid valve leaflets are normal. There is no significant tricuspid valve stenosis. There is trace tricuspid valve regurgitation. No pulmonary hypertension, estimated pulmonary arterial systolic pressure is 29 mmHg. Pericardium/Pleural The pericardium appears normal. There is no pericardial effusion. Inferior Vena Cava Normal inferior vena cava with >50% collapse upon inspiration consistent with Empty right atrial
[2022-04-20 06:16] LABS: Appearance Urine Clear (Clear); Bilirubin Urine Negative (Negative); Blood Urine Negative (Negative); Color Urine Yellow (Yellow); Glucose Urine UA Trace mg/dL (Negative); Ketones Urine Negative (Negative); Leukocyte Esterase Ur Negative LEU/UL (Negative); Nitrate Urine Negative (Negative); Protein Urine Trace mg/dL (Negative); Specific Grav Ur 1.015 (1.001-1.035); Urobilinogen Urine 0.2 mg/dL (<2.0); pH Urine 6.5 (5.0-9.0)
[2022-04-20 06:18] LABS: Amphetamine Screen Urine Negative (Negative); Barbiturate Screen Urine Negative (Negative); Benzodiazepines Screen Urine Negative (Negative); Cannabinoid Screen Urine Negative (Negative); Cocaine Screen Urine Negative (Negative); Methadone Screen Urine Negative (Negative); Opiate Screen Urine Negative (Negative); Phencyclidine Screen Urine Negative (Negative)
[2022-04-20 06:27] LABS: Mucus Urine Heavy /lpf; RBC Urine 0-2 /hpf (0-2); Squamous Epithelial Cell Urine Occasional /hpf (Few); WBC Urine 0-3 /hpf
[2022-04-20 06:37] LABS: Add Urine Microscopic? YES
[2022-04-20 07:58] LABS: Glucose Point of Care 123 mg/dl (65-105)
[2022-04-20] MEDS: ASPIRIN 81 MG ENTERIC TABLET PO (08:21)
[2022-04-20] MEDS: CLOPIDOGREL BISULFATE 75 MG TABLET PO (08:21)
--- NOTE | 2022-04-20 10:45 | PM.IMPN ---
Progress Note: A&P Assessment and Plan (1) Acute stroke due to ischemia: Code(s): I63.9 - Cerebral infarction, unspecified Status: Acute Assessment and Plan: CTA Acute infarct involving the medial right frontal lobe, focal severe stenosis in the distal right anterior cerebral artery Unknown last known well Plavix and aspirin initiated in the ED, will continue neurochecks Q4H supportive care Not a candidate for TPA MRI of the brain ordered 0% stenosis of the bilateral carotid arteries Echo ordered neurology consulted (2) Hypertension: Code(s): I10 - Essential (primary) hypertension Status: Chronic Assessment and Plan: BP 147/83 No home medications Trend BP Adjust medication (3) Hyperlipidemia: Code(s): E78.5 - Hyperlipidemia, unspecified Status: Chronic Assessment and Plan: continue statin (4) DM2 (diabetes mellitus, type 2): Code(s): E11.9 - Type 2 diabetes mellitus without complications Status: Chronic Assessment and Plan: Current glucose 173 A1c in the am Accu-cheks ACHS Diabetic diet ISS Hypoglycemia protocol (5) Grade I diastolic dysfunction: Code(s): I51.89 - Other ill-defined heart diseases Status: Acute Assessment and Plan: patient appears euvolemic will obtain echocardiogram in a.m. 1-2+ pitting edema in the bilateral lower extremities Continue to trend fluid status Time Spent With Patient Time with patient: Greater than 35 minutes Subjective Date/time seen: 04/20/22 10:45 Interval history: 04/20/22 1045 Patient was lying in bed resting. He stated he does feel little bit better. He does have some notable weakness in the left lower extremity as he can not lift off the bed but does have some effort against gravity. He did say that he has not been taking his medications. He denies any chest pain, shortness of breath, nausea, vomiting, diarrhea, constipation, weakness or fatigue. Patient did state that he is hungry and is really wanting to eat. He also states that he has not urinated much however he has not had much to drink. 04/19/22? 21:00 ?This is a 67-year-old male with past medical history significant for stroke, hypertension, diabetes, grade 1 diastolic dysfunction. patient presents to the emergency due to left-sided weakness and altered mental status.? Had been to the urgent care the day before for? left-sided weakness and after a while went home today had problems getting dressed up it took him 2 hours in the morning, denies any falls, any loss of consciousness, any loss of vision, or changes in his vision, no headaches, no difficulty swallowing, no problems with his speech.? Preliminary workup was significant for CTA of head and neck for?acute infarct involving the medial right frontal lobe,focal severe stenosis in the distal right anterior cerebral artery, no large vessel occlusion. at the time of my visit patient had significant weakness of the left upper extremity and left lower extremity he denied any fevers, cough, sputum production, nausea, vomiting, abdominal pain, no chest pain, no PND or orthopnea.? Patient is been admitted for further evaluation management and treatment. Review of Systems Review of Systems: All systems reviewed & are unremarkable except as noted in HPI and below Exam Const: General: cooperative, no acute distress, well developed, alert and awake Nutritional Appearance: well nourished Orientation/consciousness: patient oriented x3 Limitations: no limitations HENMT: Head: normal to inspection Ears: hearing grossly normal bilaterally General nose exam: Normal external nose present Mouth: Yes Normal oral and palatal mucosa present, Yes lip normal and Yes tongue normal Teeth and gingiva: abnormal tooth and associated gingiva and poor dentition Eyes: General: appearance no
--- NOTE | 2022-04-20 11:06 | WPDNEURCNPN ---
Assessment and Plan Assessment and plan (1) Acute stroke due to ischemia: Code(s): I63.9 - Cerebral infarction, unspecified Status: Acute (2) Hypertension: Code(s): I10 - Essential (primary) hypertension Status: Chronic (3) DM2 (diabetes mellitus, type 2): Code(s): E11.9 - Type 2 diabetes mellitus without complications Status: Chronic Plan 1 acute infarct involving the medial right frontal lobe 2 severe stenosis in the distal right anterior cerebral artery 3 hypertension 4 diabetes mellitus Additional Plan continue aspirin and Plavix along with atorvastatin and treatment for diabetes and hypertension Consult date: 04/20/22 Time Seen: 09:00 HPI: Osmel Hinton is a 67 year old maleAdmitted to the hospital through the emergency room where he presented with the complaints of inability to move his left side reportedly he had gone to an urgent care initially and then went home. His son called him at 11:00 a.m. his sounded strange on the telephone and as per the EMS he was found acting strange by bystanders at [employer] he is not allergic to any medication, he was not taking any home medications, he has ongoing history of type 2 diabetes mellitus, hypertension, and hyperlipidemia, his never smoker never alcohol intake and initial examination in the emergency room revealed him to have no abnormal physical finding his vital signs were stable his CBC was normal CMP with blood sugar of 173 EKG without atrial fibrillation initial CT scan in the emergency room documented no bleed but he was noted to have right thalamic old lacunar infarct in addition to nonspecific white matter hypoattenuation, Doppler study of the carotid was not significant subsequent MRI documented right thalamic acute to early subacute lacunar infarct in addition CTA documented focal severe stenosis in the distal right anterior cerebral artery a 4 segment along with the acute infarct in the medial right frontal lobe Review of Systems Review of Systems: All systems reviewed & are unremarkable except as noted in HPI and below PMFSH Past Medical History Medical History DM2 (diabetes mellitus, type 2) Patient stated that he is diet controlled and no longer takes any medication Hyperlipidemia Hypertension Nerve compression Decompression of cerebral nerve right-sided posterior Family History Family History Father Cancer Mother Alzheimer disease Social History Social History Social History: The patient lives with his and she is the durable power city attorney for healthcare. The patient desires to be a full code. He has 3 children. 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 He is a lifelong nonsmoker does not drink alcohol or do any illicit drugs. Smoking status: Never smoker Alcohol intake: never Substance use: never Substance use type: does not use Spiritual care concerns: No Meds Home Medications and Allergies Home Medications Medication Instructions Recorded Confirmed Type No Home Medications 04/19/22 04/19/22 History Allergies Allergy/AdvReac Type Severity Reaction Status Date / Time No Known Allergies Allergy Unverified 03/28/17 06:55 Vital Signs Vital Signs - 24 hr 04/19/22 20:16 04/19/22 20:32 04/19/22 20:33 Temperature 36.7 C Pulse Rate 95 93 94 Respiratory Rate 20 17 19 Blood Pressure 138/64 113/66 Pulse Oximetry 100 100 98 Oxygen Delivery Room Air 04/19/22 20:45 04/19/22 20:46 04/19/22 21:00 Temperature Pulse Rate 98 95 95 Respiratory Rate 16 15 17 Blood Pressure 150/96 H Pulse Oximetry 100 99 100 Oxygen Delivery 04/19/22 21:01 04/19/22 21:59 04/19/22 22:30 Temperature 36.4 C Pulse Rate 97 78 90 Respiratory Rate 14 18 20 Blood Pressure 172/92 H 142/78 H 140/79 Pulse Oximetry
[2022-04-20 12:12] LABS: Glucose Point of Care 175 mg/dl (65-105)
[2022-04-20 16:44] LABS: Glucose Point of Care 129 mg/dl (65-105)
--- NOTE | 2022-04-20 18:51 | ED.NEUROSD ---
HPI - Neuro Symptoms/Deficit General Chief Complaint: Suspected CVA Stated Complaint: CVA Time Seen by Provider: 04/19/22 20:00 Related Data Home Medications Medication Instructions Recorded Confirmed No Home Medications 04/19/22 04/19/22 Allergies Allergy/AdvReac Type Severity Reaction Status Date / Time No Known Allergies Allergy Unverified 03/28/17 06:55 [facility] Past Medical History Medical History DM2 (diabetes mellitus, type 2) Patient stated that he is diet controlled and no longer takes any medication Hyperlipidemia Hypertension Nerve compression Decompression of cerebral nerve right-sided posterior Family History Family History Father Cancer Mother Alzheimer disease Social History Social History Social History: The patient lives with his and she is the durable power estate planning attorney for healthcare. The patient desires to be a full code. He has 3 children. 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 He is a lifelong nonsmoker does not drink alcohol or do any illicit drugs. Smoking status: Never smoker Alcohol intake: never Substance use: never Substance use type: does not use Spiritual care concerns: No Course Vital Signs Vital signs: Vital Signs Temperature 98.0 F 04/19/22 20:16 Pulse Rate 95 04/19/22 20:16 Respiratory Rate 20 04/19/22 20:16 Blood Pressure 138/64 04/19/22 20:16 Pulse Oximetry 100 04/19/22 20:16 Oxygen Delivery Room Air 04/19/22 20:16 Temperature 97.0 F L 04/20/22 14:27 Pulse Rate 89 04/20/22 16:00 Respiratory Rate 16 04/20/22 14:27 Blood Pressure 159/81 H 04/20/22 14:27 Pulse Oximetry 99 04/20/22 17:18 Oxygen Delivery Room Air 04/20/22 17:18 MDM - Neuro Symptoms/Deficit Lab Data Result diagrams: 04/19/22 20:22 04/19/22 20:22 Labs: Lab Results 04/19/22 04/19/22 04/19/22 Range/Units 20:16 20:21 20:22 WBC 8.8 (4.5-10.0) K/mm3 RBC 4.50 L (4.6-6.20) M/mm3 Hgb 13.2 L (14.0-18.0) g/dL Hct 41.1 L (42.0-52.0) % MCV 91.3 (80-100) fl MCH 29.3 (26-34) pg MCHC 32.1 (32-36) g/dl RDW 13.3 (11.5-14.5) % Plt Count 295 (150-375) k/mm3 MPV 10.7 H (7.4-10.4) fl Immature Gran % (Auto) 0.2 (0-0.5) % Neut % (Auto) 73.5 H (45.5-73.1) % Lymph % (Auto) 17.9 L (18.3-44.2) % Fountain % (Auto) 8.1 (2.6-8.5) % Eos % (Auto) 0.2 (0-4.4) % Baso % (Auto) 0.1 L (0.2-1.2) % Lymph # (Auto) 1.58 (0.9-3.2) K/mm3 Fountain # (Auto) 0.7 H (0.1-0.6) K/mm3 Eos # (Auto) 0.0 (0-0.3) K/mm3 Baso # (Auto) 0.0 (0.0-0.1) K/mm3 Abs Immat Gran (auto) 0.02 (0.00-0.031) K/mm3 Absolute Neuts (auto) 6.5 (1.3-6.7) K/mm3 Absolute Nucleated RBC 0.0 (0.0-0.012) K/mm3 Nucleated RBC % 0.0 (0.0-0.2) % PT (11.1-14.7) Seconds INR APTT (22.3-36.8) SECONDS Sodium (137-145) mmol/L Potassium (3.4-5.0) mmol/L Chloride (98-107) mmol/L Carbon Dioxide (22-30) mmol/L Anion Gap (8-16) mmol/L BUN (9-20) mg/dL Creatinine (0.7-1.3) mg/dL Estim Creat Clear Calc ml/min Estimated GFR (59 - ) Glucose (65-110) mg/dL POC Capillary Glucose 174 H (65-105) mg/dl Hemoglobin A1c 7.0 H (<5.7) % Calcium (8.4-10.2) mg/dL Total Bilirubin (0.2-1.3) mg/dL AST (17-59) U/L ALT (6-50) U/L Alkaline Phosphatase (38-126) U/L Troponin I (0.000-0.034) ng/mL Total Protein (6.3-8.2) g/dL Albumin (3.5-5.1) g/dL Ethyl Alcohol (<10) mg/dL Blood Type Antibody Screen 04/19/22 04/19/22 04/19/22 Range/Units 20:22 20:22 20:22 WBC (4.5-10.0) K/mm3 RBC (4.6-6.20) M/mm3 Hgb (14.0-18.0) g/dL Hct (42.0-52.0) % MCV (80-100) fl MCH (26-34
[2022-04-21] VITALS: PULSE 74
[2022-04-21 03:48] VITALS: BP 168/84; PULSE 75; RESP 20; TEMP 36.3; O2SAT 100
[2022-04-21 04:00] VITALS: PULSE 77
[2022-04-21 07:46] LABS: Glucose Point of Care 143 mg/dl (65-105)
[2022-04-21 08:00] VITALS: PULSE 89
[2022-04-21] MEDS: CLOPIDOGREL BISULFATE 75 MG TABLET PO (09:09)
[2022-04-21] MEDS: ENOXAPARIN 40 MG/0.4 ML SYRINGE SUB-Q (09:09)
[2022-04-21] MEDS: ASPIRIN 81 MG ENTERIC TABLET PO (09:09)
[2022-04-21 09:19] LABS: Basophils Percent Auto 0.4 % (0.2-1.2); Eosinophils Absolute Auto 0.1 K/mm3 (0-0.3); Eosinophils Percent Auto 0.9 % (0-4.4); Hematocrit 47.2 % (42.0-52.0); Hemoglobin 15.4 g/dL (14.0-18.0); Immature Granulocyte Absolute 0.02 K/mm3 (0.00-0.031); Immature Granulocyte Percent A 0.4 % (0-0.5); Lymphocytes Absolute Auto 1.41 K/mm3 (0.9-3.2); Lymphocytes Percent Auto 24.8 % (18.3-44.2); Mean Corpuscular HGB Conc 32.6 g/dl (32-36); Mean Platelet Volume 10.4 fl (7.4-10.4); Monocytes Absolute Auto 0.5 K/mm3 (0.1-0.6); Monocytes Percent Auto 7.9 % (2.6-8.5); Neutrophils Absolute Auto 3.7 K/mm3 (1.3-6.7); Neutrophils Percent Auto 65.6 % (45.5-73.1); Platelet Count Result 301 k/mm3 (150-375); Red Blood Count 5.13 M/mm3 (4.6-6.20); Red Cell Distribution Width 13.1 % (11.5-14.5); White Blood Count 5.7 K/mm3 (4.5-10.0)
[2022-04-21 09:35] LABS: Alanine Aminotransferase 17 U/L (6-50); Albumin Level 3.9 g/dL (3.5-5.1); Alkaline Phosphatase 77 U/L (38-126); Anion Gap 10 mmol/L (8-16); Aspartate Amino Transferase 25 U/L (17-59); Bilirubin,Total 0.7 mg/dL (0.2-1.3); Blood Urea Nitrogen 11 mg/dL (9-20); Calcium 9.4 mg/dL (8.4-10.2); Carbon Dioxide 23 mmol/L (22-30); Chloride 103 mmol/L (98-107); Estimated CRCL calculation 96 ml/min; Estimated Glomerular Filt Rate > 60; Glucose 176 mg/dL (65-110); Potassium 3.6 mmol/L (3.4-5.0); Sodium 136 mmol/L (137-145)
[2022-04-21 12:00] VITALS: PULSE 101
--- NOTE | 2022-04-21 14:00 | PM.DS ---
DS: Admitting Diagnosis Discharge Date 04/21/22 1400 Admitting Diagnosis CVA DS: Discharge Diagnosis Discharge Diagnosis (1) Acute stroke due to ischemia: Code(s): I63.9 - Cerebral infarction, unspecified Status: Acute Assessment and Plan: ?CTA Acute infarct involving the medial right frontal lobe, focal severe stenosis in the distal right anterior cerebral artery ?Unknown last known well ?Plavix and aspirin initiated in the ED, will continue ?neurochecks Q4H ?supportive care ?Not a candidate for TPA ?MRI of the brain ordered ?0% stenosis of the bilateral carotid arteries ?Echo ordered ?neurology consulted (2) Hypertension: Code(s): I10 - Essential (primary) hypertension Status: Chronic Assessment and Plan: ?BP 147/83 ?No home medications ?Trend BP ?Adjust medication (3) Hyperlipidemia: Code(s): E78.5 - Hyperlipidemia, unspecified Status: Chronic Assessment and Plan: continue statin (4) DM2 (diabetes mellitus, type 2): Code(s): E11.9 - Type 2 diabetes mellitus without complications Status: Chronic Assessment and Plan: Current glucose 176 A1c in the am Accu-cheks ACHS add metformin for DC Diabetic diet ISS Hypoglycemia protocol (5) Grade I diastolic dysfunction: Code(s): I51.89 - Other ill-defined heart diseases Status: Acute Assessment and Plan: ?patient appears euvolemic ?will obtain echocardiogram in a.m. 1-2+ pitting edema in the bilateral lower extremities Continue to trend fluid status DS: Summary Hospital Course Hospital Course: patient is has 67-year-old male with past medical history of stroke, hypertension, diabetes, who presented the ED with left-sided weakness and altered mental status. CT of the head did show acute CVA of the medial right frontal lobe focal severe stenosis in the distal right anterior cerebral artery. Patient was outside the window for tPA however MRI was performed and showed acute parked in the medial anterior right frontal lobe. Carotid Doppler was also performed and showed less than 50% stenosis in bilateral carotid arteries. CTA of the head and neck showed 0% stenosis in the bilateral carotid arteries. Echo showed an EF of 65-70% with grade 1 diastolic dysfunction. venous Doppler also showed no deep vein thrombosis in the bilateral in the lower extremities. patient was loaded with Plavix and aspirin and atorvastatin were started. A1c was also obtained and showed a 7. Glucose has been controlled and under 200 throughout the stay. Patient will be started on metformin. Patient has been working with PT and OT and has been able to get up and given chair. Patient did show a left-sided deficit especially in the leg and arm. NIH scale is very minimal at this time. Patient is stable for discharge per labs and vital signs. Patient will need to follow up with Neurology in 3 months. Blood pressure has been controlled throughout the visit as well. Will start patient on 5 lisinopril p.o. daily. Patient is being discharged to acute rehab for further mobility. He currently denies any chest pain, shortness of breath, nausea, vomiting, diarrhea, constipation, weakness or fatigue. Status at Discharge Functional status at discharge: uses cane/walker Overall status at discharge: patient is progressing back to baseline Time Spent with Patient Time attestation: Total time spent providing and/or coordinating discharge services: 37 minutes Time spent: Greater than 30 minutes Specific discharge activities: Diagnostic testing, chart review, developing a treatment plan, education, care coordination documentation, physical exam, result review Exam Const: General: cooperative, healthy appearing, no acute distress, well developed, alert and awake Nutritional Appearance: well nourished Orientation/consciousness: patient oriented x3 Limitations: no limita
[2022-04-21 14:15] VITALS: BP 122/83; PULSE 90; RESP 20; TEMP 36.7; O2SAT 100
--- NOTE | 2022-05-01 09:46 | NEURO_ITS ---
This report was moved to the correct visit, [id number] on 05/03/2022. Original report was signed by Ambrocio Mora. 05/01/[id number]. Neurology EEG Report General Information Date of Study: 03/31/22 TEST eeg DIAGNOSIS left-sided weakness CONDITION OF RECORDING awake drowsy EEG NUMBER [id number] CLINICAL HISTORY patient reports he is here in the hospital due to a stroke yesterday that has left him weak on the left side EEG DESCRIPTION background rhythm consists of low to medium voltage 8 to 9 hertz per 2nd alpha admixed with low to medium voltage 6 to 7 hertz per 2nd theta and intermittent 2 to 3 hertz per 2nd delta activity with superimposed low-voltage 15 to 18 hertz per 2nd beta activity. Hyperventilation not done. Photic stimulation not done. Non paroxysmal. Nonfocal. Nonlateralizing. IMPRESSION Abnormal record due to the absence of the normal background rhythm, presence of bihemispheric theta and delta activity, but with no evidence of any paroxysmal discharge. Abnormalities could be suggestive of underlying organic or metabolic encephalopathy or postictal state. Clinical correlation recommended. This dictation may have been done utilizing a voice recognition system. Attempts have been made to correct errors. However, there may be uncorrected grammatical, spelling, and recognition errors present. Report Initialized date/time: Ambrocio Mora MD 05/01/22945 Electronically signed by: Ambrocio Mora MD 05/01/22945 [facility]
== END 2022-04-21 20:18 | DRG 65 ==
LOC: ANHED 21:04 → ANH2MED 04-20 08:38
PROVIDERS: Admitting Provider Internal Medicine; Emergency Provider Emergency Medicine; PCP Internal Medicine; Visit Provider Nurse Practitioner
DX: I63.521 Cerebral infarction due to unspecified occlusion or stenosis of right anterior cerebral artery (principal); G81.94 Hemiplegia, unspecified affecting left nondominant side; R41.82 Altered mental status, unspecified; R29.705 NIHSS score 5; I10 Essential (primary) hypertension; E78.5 Hyperlipidemia, unspecified; E11.9 Type 2 diabetes mellitus without complications; I51.89 Other ill-defined heart diseases
CPT/HCPCS: 36415; 70496; 70498; 70553; 80053; 80307; 81001; 82948; 83036; 84484; 85025; 85610; 85730; 86850; 86900; 86901; 93005; 93306; 93880; 93970; 95816; 97110; 97116; 97161; 97166; 99285; A9270; A9577; C9803; J1650; Q9967; U0003; U0005